=== PATIENT | female | born 1995 | race Hispanic/Latino ===

== ENCOUNTER 2017-11-25 17:45 | Emergency (ER) | payer OTHER ==
[2017-11-25 18:21] LABS: APPEARANCE,URINE Clear (CLEAR); BILIRUBIN,URINE Negative (NEGATIVE); COLOR,URINE Yellow (YELLOW); GLUCOSE, URINE (UA) Negative (NEGATIVE); KETONES,URINE Negative (NEGATIVE); LEUKOCYTE ESTERASE ,URINE Moderate (NEGATIVE); NITRATE,URINE Negative (NEGATIVE); OCCULT BLOOD,URINE Negative (NEGATIVE); PH,URINE 7.5 (5.0-8.0); PROTEIN,URINE Negative (NEGATIVE)
[2017-11-25 18:26] LABS: HCG,QUAL RESULT NEGATIVE (NEGATIVE)
[2017-11-25 18:28] LABS: BACTERIA,URINE Few /HPF (None Seen); MUCUS,URINE Few LPF (None Seen); RBC,URINE 0-1 /HPF (0-1); SQUAMOUS EPITHELIAL CELL,UR Few /HPF (0-2)
[2017-11-25] MEDS ORDERED: ORPHENADRINE CITRATE 30 MG/ML ML ONE (18:29)
[2017-11-25] MEDS ORDERED: DEXAMETHASONE SOD PHOSPHATE 10MG/ML 1ML VIAL ONE (18:29)
== END 2017-11-25 19:21 | disposition home or self-care (01) ==
LOC: EDH 17:45
DX: M54.42 Lumbago with sciatica, left side (principal); M54.41 Lumbago with sciatica, right side
CPT/HCPCS: 72100; 81001; 81025; 96372 ×2; 99285; J1100; J2360

== ENCOUNTER 2020-03-06 08:27 | Emergency (ER) | payer MEDICAID ==
[2020-03-06 09:45] LABS: BASOPHILS % (AUTO) 0.4 % (0.0-5.0); EOSINOPHILS % (AUTO) 1.5 % (0.0-8.0); HEMATOCRIT 37.1 % (36-48); LYMPHOCYTES % (AUTO) 18.7 % (21.0-51.0); MEAN CORPUSCULAR HEMOGLOBIN 25.8 pg (27.0-33.0); MEAN CORPUSCULAR HGB CONC 32.1 g/dL (32.0-36.0); MEAN CORPUSCULAR VOLUME 80.5 fL (79-99); MONOCYTES % (AUTO) 6.7 % (3.0-13.0); NEUTROPHILS % (AUTO) 72.1 % (40.0-77.0); PLATELET COUNT (AUTO) 450 K/uL (130-400); RED BLOOD CELL COUNT(AUTO) 4.61 MIL/uL (4.00-5.50); RED CELL DISTRIBUTION WIDTH 14.7 % (11.0-15.5); WHITE BLOOD COUNT (AUTO) 11.8 K/uL (4.8-10.8)
[2020-03-06 09:53] LABS: CREATININE 0.5 mg/dL (0.5-1.5); POTASSIUM 3.8 mmol/L (3.5-5.1)
[2020-03-06 09:53] LABS: APPEARANCE,URINE Clear (CLEAR); BILIRUBIN,URINE Negative (NEGATIVE); COLOR,URINE Yellow (YELLOW); GLUCOSE, URINE (UA) Negative (NEGATIVE); KETONES,URINE Negative (NEGATIVE); LEUKOCYTE ESTERASE ,URINE Small (NEGATIVE); NITRATE,URINE Negative (NEGATIVE); OCCULT BLOOD,URINE Large (NEGATIVE); PROTEIN,URINE Negative (NEGATIVE)
[2020-03-06 10:12] LABS: BACTERIA,URINE Rare /HPF (None Seen); RBC,URINE 0-1 /HPF (0-1); SQUAMOUS EPITHELIAL CELL,UR Moderate /HPF (0-2); WBC,URINE 0-1 /HPF (0-1)
== END 2020-03-06 11:49 | disposition home or self-care (01) ==
LOC: EDH 08:27
DX: O20.0 Threatened abortion (principal); O23.91 Unspecified genitourinary tract infection in pregnancy, first trimester; Z3A.08 8 weeks gestation of pregnancy
CPT/HCPCS: 36415; 76817; 80048; 81001; 84702; 85025; 86850; 86900; 86901

== ENCOUNTER 2021-02-15 12:56 | Emergency (ER) | payer MEDICAID ==
[~2021-02-15] VITALS: Ht 154.9 cm; Wt 73.9 kg
[2021-02-15 13:23] LABS: BASOPHILS % (AUTO) 0.4 % (0.0-5.0); EOSINOPHILS % (AUTO) 2.4 % (0.0-8.0); HEMATOCRIT 33.4 % (36-48); LYMPHOCYTES % (AUTO) 21.5 % (21.0-51.0); MEAN CORPUSCULAR HEMOGLOBIN 18.5 pg (27.0-33.0); MEAN CORPUSCULAR HGB CONC 27.8 g/dL (32.0-36.0); MEAN CORPUSCULAR VOLUME 66.3 fL (79-99); MONOCYTES % (AUTO) 6.3 % (3.0-13.0); NEUTROPHILS % (AUTO) 69.1 % (40.0-77.0); PLATELET COUNT (AUTO) 558 K/uL (130-400); RED BLOOD CELL COUNT(AUTO) 5.04 MIL/uL (4.00-5.50); RED CELL DISTRIBUTION WIDTH 17.7 % (11.0-15.5); WHITE BLOOD COUNT (AUTO) 9.5 K/uL (4.8-10.8)
[2021-02-15 13:36] LABS: CREATININE 0.5 mg/dL (0.5-1.5); POTASSIUM 4.1 mmol/L (3.5-5.1)
[2021-02-15 13:40] LABS: ALBUMIN 4.3 g/dL (3.5-5.0); BILIRUBIN,TOTAL 0.2 mg/dL (0.2-1.0); TOTAL PROTEIN, SERUM 8.5 g/dL (6.0-8.3)
[2021-02-15 15:32] LABS: BILIRUBIN,URINE Negative (NEGATIVE); COLOR,URINE Yellow (YELLOW); GLUCOSE, URINE (UA) Negative (NEGATIVE); KETONES,URINE Negative (NEGATIVE); LEUKOCYTE ESTERASE ,URINE Negative (NEGATIVE); NITRATE,URINE Negative (NEGATIVE); OCCULT BLOOD,URINE Negative (NEGATIVE); PROTEIN,URINE Negative (NEGATIVE); UROBILINOGEN,URINE 0.2 mg/dL (0.2-1.0)
[2021-02-15 15:35] LABS: HCG,QUAL RESULT NEGATIVE (NEGATIVE)
[2021-02-15 15:37] LABS: APPEARANCE,URINE CLEAR (CLEAR)
[2021-02-15 15:49] LABS: BACTERIA,URINE Few /HPF (None Seen); RBC,URINE 0-1 /HPF (0-1); SQUAMOUS EPITHELIAL CELL,UR 0-2 /HPF (0-2); WBC,URINE 0-1 /HPF (0-1)
[2021-02-15 16:00] VITALS: BP 124/78
[2021-02-15] MEDS ORDERED: DICL35CA3 PO (16:06)
[2021-02-15] MEDS ORDERED: KETOROLAC 60 MG VIAL (30MG/ML) ONE (16:15)
[2021-02-15] MEDS ORDERED: KETOROLAC 60 MG VIAL (30MG/ML) IM ONE (16:30)
== END 2021-02-15 16:22 | disposition home or self-care (01) ==
LOC: EDH 12:56
DX: N94.6 Dysmenorrhea, unspecified (principal); F17.200 Nicotine dependence, unspecified, uncomplicated
CPT/HCPCS: 36415; 80053; 81001; 81025; 85025; 99283; J1885; 81003

== ENCOUNTER 2021-06-27 13:01 | Emergency (ER) | payer MEDICAID, OTHER ==
[~2021-06-27] VITALS: Ht 154.9 cm; Wt 77.1 kg
[~2021-06-27 13:01] MED LIST: DICL35CA3 PO
[2021-06-27 13:02] VITALS: BP 128/71
[2021-06-27 13:23] LABS: BASOPHILS % (AUTO) 0.2 % (0.0-5.0); EOSINOPHILS % (AUTO) 2.1 % (0.0-8.0); HEMATOCRIT 35.9 % (36-48); LYMPHOCYTES % (AUTO) 10.3 % (21.0-51.0); MEAN CORPUSCULAR HEMOGLOBIN 20.4 pg (27.0-33.0); MEAN CORPUSCULAR HGB CONC 30.4 g/dL (32.0-36.0); MEAN CORPUSCULAR VOLUME 67.2 fL (79-99); MONOCYTES % (AUTO) 6.5 % (3.0-13.0); NEUTROPHILS % (AUTO) 80.5 % (40.0-77.0); PLATELET COUNT (AUTO) 430 K/uL (130-400); RED BLOOD CELL COUNT(AUTO) 5.34 MIL/uL (4.00-5.50); RED CELL DISTRIBUTION WIDTH 18.4 % (11.0-15.5); WHITE BLOOD COUNT (AUTO) 9.1 K/uL (4.8-10.8)
[2021-06-27] MEDS ORDERED: ONDANSETRON 4MG INJ IVP ONE (13:30)
[2021-06-27 13:33] LABS: CARBON DIOXIDE 24 mmol/L (21-32); CHLORIDE 101 mmol/L (101-111); CREATININE 0.5 mg/dL (0.5-1.5); GLOMERULAR FILTR. RATE CALC 161 mL/min (>60); GLUCOSE,RANDOM 92 mg/dL (70-105); POTASSIUM 3.5 mmol/L (3.5-5.1); SODIUM SERUM 134 mmol/L (136-145); UREA NITROGEN, BLOOD 7 mg/dL (7-18)
[2021-06-27 13:37] LABS: ALANINE AMINOTRANSFERASE 19 U/L (12-78); ALBUMIN 3.9 g/dL (3.5-5.0); ASPARTATE AMINOTRANSFERASE 14 U/L (10-37); BILIRUBIN,TOTAL 0.5 mg/dL (0.2-1.0); TOTAL PROTEIN, SERUM 8.2 g/dL (6.0-8.3)
[2021-06-27 13:39] LABS: LIPASE < 50 U/L (114-286)
[2021-06-27 13:42] LABS: APPEARANCE,URINE Cloudy (CLEAR); BILIRUBIN,URINE Negative (NEGATIVE); COLOR,URINE Dark Yellow (YELLOW); GLUCOSE, URINE (UA) Negative (NEGATIVE); KETONES,URINE Trace mg/dL (NEGATIVE); LEUKOCYTE ESTERASE ,URINE Small (NEGATIVE); NITRATE,URINE Negative (NEGATIVE); OCCULT BLOOD,URINE Negative (NEGATIVE); PROTEIN,URINE Trace mg/dL (NEGATIVE)
[2021-06-27 13:49] LABS: AMPHET/METH SCREEN,URINE NEGATIVE (NEGATIVE); BARBITURATE SCREEN, URINE NEGATIVE (NEGATIVE); BENZODIAZEPINES SCREEN,URINE NEGATIVE (NEGATIVE); CANNABINOID SCREEN,URINE POSITIVE (NEGATIVE); COCAINE SCREEN,URINE NEGATIVE (NEGATIVE); OPIATE SCREEN,URINE NEGATIVE (NEGATIVE); PHENCYCLIDINE SCREEN,URINE NEGATIVE (NEGATIVE)
[2021-06-27 13:52] LABS: BACTERIA,URINE Rare /HPF (None Seen); MUCUS,URINE Few LPF (None Seen); RBC,URINE 0-1 /HPF (0-1); SQUAMOUS EPITHELIAL CELL,UR Rare /HPF (0-2); WBC,URINE 0-1 /HPF (0-1)
[2021-06-27] MEDS ORDERED: IBUP-2070 PO (15:18)
== END 2021-06-27 15:46 | disposition home or self-care (01) ==
LOC: EDH 13:01
DX: N83.201 Unspecified ovarian cyst, right side (principal); D64.9 Anemia, unspecified; F17.200 Nicotine dependence, unspecified, uncomplicated; Z79.899 Other long term (current) drug therapy
CPT/HCPCS: 36415; 74176; 80053; 80305; 81001; 81025; 83690; 85025; 96374; 99284; J2405

== ENCOUNTER 2021-08-02 21:49 | Emergency (ER) | payer MEDICAID ==
[~2021-08-02] VITALS: Ht 152.4 cm; Wt 79.4 kg
[~2021-08-02 21:49] MED LIST changes: +IBUP-2070 PO
[2021-08-02] MEDS ORDERED: IBUP-2071 PO (22:55)
[2021-08-02] MEDS ORDERED: ACET-2247 PO (22:55)
[2021-08-02] MEDS ORDERED: AMOX1TAB16 PO (22:55)
[2021-08-02 22:58] VITALS: BP 129/80
[2021-08-02] MEDS ORDERED: ACETAMINOPHEN WITH CODEINE 1 TAB TAB PO ONE (23:00)
[2021-08-02] MEDS ORDERED: LIDOCAINE HCL 2% VISCOUS 15 ML UDCUP PO ONE (23:00)
[2021-08-02] MEDS ORDERED: MAG/ALUM/SIMETH 30 ML UDCUP PO ONE (23:00)
[2021-08-02] MEDS ORDERED: CEFTRIAXONE 1G VIAL IVP ONE (23:00)
[2021-08-02] MEDS ORDERED: DICYCLOMINE HCL 10 MG/5 ML ML PO ONE (23:00)
== END 2021-08-02 23:17 | disposition home or self-care (01) ==
LOC: EDH 21:49
DX: J02.9 Acute pharyngitis, unspecified (principal); F17.200 Nicotine dependence, unspecified, uncomplicated; Z79.1 Long term (current) use of non-steroidal anti-inflammatories (NSAID)
CPT/HCPCS: 96374; 99283; J0696

== ENCOUNTER → 2022-01-04 | Outpatient (CLI) | payer MEDICAID ==
[~2022-01-04] MED LIST changes: +ACET-2247 PO; +AMOX1TAB16 PO; +IBUP-2071 PO
== END | disposition home or self-care (01) ==
LOC: RAH 09:32
PROVIDERS: ATTEND Obstetrics & Gynecology
DX: K76.0 Fatty (change of) liver, not elsewhere classified (principal); R10.13 Epigastric pain
CPT/HCPCS: 76705

== ENCOUNTER 2022-02-20 14:30 | Observation (INO) | payer MEDICAID ==
[~2022-02-20] VITALS: Ht 154.9 cm; Wt 79.4 kg
[2022-02-20 14:49] VITALS: BP 133/84
[2022-02-20 16:03] LABS: APPEARANCE,URINE CLOUDY (CLEAR); BILIRUBIN,URINE NEGATIVE (NEGATIVE); COLOR,URINE LIGHT-YELLOW (YELLOW); GLUCOSE, URINE (UA) 50 mg/dL (NEGATIVE); KETONES,URINE NEGATIVE (NEGATIVE); LEUKOCYTE ESTERASE ,URINE 500 Leu/uL (NEGATIVE); NITRATE,URINE NEGATIVE (NEGATIVE); OCCULT BLOOD,URINE NEGATIVE (NEGATIVE); PROTEIN,URINE NEGATIVE (NEGATIVE); UROBILINOGEN,URINE 0.2 mg/dL (0.2-1.0)
[2022-02-20 16:07] LABS: BACTERIA,URINE RARE /HPF (None Seen); MUCUS,URINE RARE LPF (None Seen); SQUAMOUS EPITHELIAL CELL,UR MOD /HPF (0-2)
[2022-02-20 16:26] LABS: AMPHET/METH SCREEN,URINE NEGATIVE (NEGATIVE); BARBITURATE SCREEN, URINE NEGATIVE (NEGATIVE); BENZODIAZEPINES SCREEN,URINE NEGATIVE (NEGATIVE); CANNABINOID SCREEN,URINE NEGATIVE (NEGATIVE); COCAINE SCREEN,URINE NEGATIVE (NEGATIVE); OPIATE SCREEN,URINE NEGATIVE (NEGATIVE); PHENCYCLIDINE SCREEN,URINE NEGATIVE (NEGATIVE)
== END 2022-02-20 16:39 | disposition home or self-care (01) ==
LOC: EDH 14:30 → LDH 14:59
PROVIDERS: ADMIT Obstetrics & Gynecology; ATTEND Obstetrics & Gynecology
DX: O26.892 Other specified pregnancy related conditions, second trimester (principal); R10.9 Unspecified abdominal pain; Z3A.23 23 weeks gestation of pregnancy
CPT/HCPCS: 80305; 87088; 81001; G0378 ×2; G0379

== ENCOUNTER 2022-03-16 08:17 | Observation (INO) | payer MEDICAID ==
[~2022-03-16] VITALS: Ht 154.9 cm; Wt 81.2 kg
[2022-03-16 09:21] LABS: APPEARANCE,URINE CLOUDY (CLEAR); BILIRUBIN,URINE NEGATIVE (NEGATIVE); COLOR,URINE LIGHT-ORANGE (YELLOW); GLUCOSE, URINE (UA) NEGATIVE (NEGATIVE); KETONES,URINE NEGATIVE (NEGATIVE); LEUKOCYTE ESTERASE ,URINE 500 Leu/uL (NEGATIVE); NITRATE,URINE NEGATIVE (NEGATIVE); PH,URINE 6.5 (5.0-8.0); PROTEIN,URINE 30 mg/dL (NEGATIVE); UROBILINOGEN,URINE 0.2 mg/dL (0.2-1.0)
[2022-03-16] MEDS ORDERED: FLUCONAZOLE 100 MG TAB PO SCH (09:30)
[2022-03-16 09:52] LABS: BACTERIA,URINE MOD /HPF (None Seen); MUCUS,URINE RARE LPF (None Seen); RBC,URINE 26-50 /HPF (0-1); SQUAMOUS EPITHELIAL CELL,UR MANY /HPF (0-2); WBC,URINE 51-100 /HPF (0-1)
[2022-03-16 09:56] VITALS: BP 114/59
[2022-03-16 13:20] LABS: AMPHET/METH SCREEN,URINE NEGATIVE (NEGATIVE); BARBITURATE SCREEN, URINE NEGATIVE (NEGATIVE); BENZODIAZEPINES SCREEN,URINE NEGATIVE (NEGATIVE); CANNABINOID SCREEN,URINE NEGATIVE (NEGATIVE); COCAINE SCREEN,URINE NEGATIVE (NEGATIVE); OPIATE SCREEN,URINE NEGATIVE (NEGATIVE); PHENCYCLIDINE SCREEN,URINE NEGATIVE (NEGATIVE)
== END 2022-03-16 10:45 | disposition home or self-care (01) ==
LOC: EDH 08:17 → LDH 08:18
PROVIDERS: ADMIT Obstetrics & Gynecology; ATTEND Obstetrics & Gynecology
DX: O34.60 Maternal care for abnormality of vagina, unspecified trimester (principal); N89.8 Other specified noninflammatory disorders of vagina; Z3A.00 Weeks of gestation of pregnancy not specified
CPT/HCPCS: 80305; 87088; 81001; G0378 ×2; G0379

== ENCOUNTER 2022-03-21 15:55 | Observation (INO) | payer MEDICAID ==
[~2022-03-21] VITALS: Ht 154.9 cm; Wt 79.4 kg
[2022-03-21 18:03] LABS: HEMATOCRIT 29.5 % (36-48); MEAN CORPUSCULAR HEMOGLOBIN 20.1 pg (27.0-33.0); MEAN CORPUSCULAR HGB CONC 29.2 g/dL (32.0-36.0); MEAN CORPUSCULAR VOLUME 69.1 fL (79-99); PLATELET COUNT (AUTO) 434 K/uL (130-400); RED BLOOD CELL COUNT(AUTO) 4.27 MIL/uL (4.00-5.50); RED CELL DISTRIBUTION WIDTH 17.1 % (11.0-15.5); WHITE BLOOD COUNT (AUTO) 12.9 K/uL (4.8-10.8)
[2022-03-21 18:08] VITALS: BP 122/74
[2022-03-21 18:16] LABS: BASOPHILS % (AUTO) 0.2 % (0.0-5.0); EOSINOPHILS % (AUTO) 2.1 % (0.0-8.0); LYMPHOCYTES % (AUTO) 12.7 % (21.0-51.0); MONOCYTES % (AUTO) 7.5 % (3.0-13.0)
[2022-03-21 18:24] LABS: ALBUMIN 2.7 g/dL (3.5-5.0); CREATININE 0.4 mg/dL (0.5-1.5); POTASSIUM 3.4 mmol/L (3.5-5.1); TOTAL PROTEIN, SERUM 7.2 g/dL (6.0-8.3)
[2022-03-21 19:05] LABS: APPEARANCE,URINE CLOUDY (CLEAR); BILIRUBIN,URINE NEGATIVE (NEGATIVE); COLOR,URINE YELLOW (YELLOW); GLUCOSE, URINE (UA) 300 mg/dL (NEGATIVE); KETONES,URINE 5 mg/dL (NEGATIVE); LEUKOCYTE ESTERASE ,URINE 250 Leu/uL (NEGATIVE); NITRATE,URINE NEGATIVE (NEGATIVE); OCCULT BLOOD,URINE NEGATIVE (NEGATIVE); PROTEIN,URINE 30 mg/dL (NEGATIVE); UROBILINOGEN,URINE 0.2 mg/dL (0.2-1.0)
[2022-03-21 19:11] LABS: AMPHET/METH SCREEN,URINE NEGATIVE (NEGATIVE); BARBITURATE SCREEN, URINE NEGATIVE (NEGATIVE); BENZODIAZEPINES SCREEN,URINE NEGATIVE (NEGATIVE); CANNABINOID SCREEN,URINE NEGATIVE (NEGATIVE); COCAINE SCREEN,URINE NEGATIVE (NEGATIVE); OPIATE SCREEN,URINE NEGATIVE (NEGATIVE); PHENCYCLIDINE SCREEN,URINE NEGATIVE (NEGATIVE)
[2022-03-21 19:56] LABS: BACTERIA,URINE FEW /HPF (None Seen); MUCUS,URINE RARE LPF (None Seen); OTHER CASTS, URINE 1 /LPF (None Seen); SQUAMOUS EPITHELIAL CELL,UR MOD /HPF (0-2)
== END 2022-03-21 19:10 | disposition home or self-care (01) ==
LOC: EDH 15:55 → LDH 15:56
PROVIDERS: ADMIT Obstetrics & Gynecology; ATTEND Obstetrics & Gynecology
DX: O99.612 Diseases of the digestive system complicating pregnancy, second trimester (principal); K62.5 Hemorrhage of anus and rectum; O99.322 Drug use complicating pregnancy, second trimester; F12.90 Cannabis use, unspecified, uncomplicated; Z3A.27 27 weeks gestation of pregnancy; Z87.891 Personal history of nicotine dependence
CPT/HCPCS: 99284; 80053; 80305; 85025; 86850; 86900; 86901; 87088; 36415; 81001; G0378

== ENCOUNTER 2022-04-23 14:04 | Observation (INO) | payer MEDICAID ==
[~2022-04-23] VITALS: Ht 154.9 cm; Wt 84.8 kg
[2022-04-23 14:47] LABS: APPEARANCE,URINE CLOUDY (CLEAR); BILIRUBIN,URINE NEGATIVE (NEGATIVE); COLOR,URINE YELLOW (YELLOW); GLUCOSE, URINE (UA) >=1000 mg/dL (NEGATIVE); KETONES,URINE 40 mg/dL (NEGATIVE); LEUKOCYTE ESTERASE ,URINE 500 Leu/uL (NEGATIVE); NITRATE,URINE NEGATIVE (NEGATIVE); OCCULT BLOOD,URINE NEGATIVE (NEGATIVE); PROTEIN,URINE 50 mg/dL (NEGATIVE); UROBILINOGEN,URINE 0.2 mg/dL (0.2-1.0)
[2022-04-23 14:50] LABS: AMPHET/METH SCREEN,URINE NEGATIVE (NEGATIVE); BARBITURATE SCREEN, URINE NEGATIVE (NEGATIVE); BENZODIAZEPINES SCREEN,URINE NEGATIVE (NEGATIVE); CANNABINOID SCREEN,URINE NEGATIVE (NEGATIVE); COCAINE SCREEN,URINE NEGATIVE (NEGATIVE); OPIATE SCREEN,URINE NEGATIVE (NEGATIVE); PHENCYCLIDINE SCREEN,URINE NEGATIVE (NEGATIVE)
[2022-04-23 14:54] LABS: BACTERIA,URINE FEW /HPF (None Seen); MUCUS,URINE MANY LPF (None Seen); SQUAMOUS EPITHELIAL CELL,UR MOD /HPF (0-2); WBC,URINE 26-50 /HPF (0-1)
[2022-04-23] MEDS ORDERED: LACTATED RINGERS 1000ML 1,000 ML IV PRN (15:00)
[2022-04-23] MEDS ORDERED: ACETAMINOPHEN 500 MG TABLET PO PRN (15:30)
[2022-04-23 15:32] LABS: BASOPHILS % (AUTO) 0.2 % (0.0-5.0); EOSINOPHILS % (AUTO) 1.2 % (0.0-8.0); HEMATOCRIT 25.6 % (36-48); LYMPHOCYTES % (AUTO) 8.6 % (21.0-51.0); MEAN CORPUSCULAR HEMOGLOBIN 18.8 pg (27.0-33.0); MEAN CORPUSCULAR HGB CONC 28.5 g/dL (32.0-36.0); MONOCYTES % (AUTO) 7.3 % (3.0-13.0); NEUTROPHILS % (AUTO) 78.5 % (40.0-77.0); NUCLEATED RED BLOOD CELLS 0.5 % (0.0-0.19); PLATELET COUNT (AUTO) 416 K/uL (130-400); RED BLOOD CELL COUNT(AUTO) 3.88 MIL/uL (4.00-5.50); RED CELL DISTRIBUTION WIDTH 18.1 % (11.0-15.5); WHITE BLOOD COUNT (AUTO) 13.9 K/uL (4.8-10.8)
[2022-04-23] MEDS: MEPERIDINE-PF 50 MG/ML SYG IVP PRN ×2 (15:38→21:04)
[2022-04-23] MEDS: PROMETHAZINE HCL 25 MG/ML 1ML AMPULE IM PRN ×2 (15:39→21:04)
[2022-04-23] MEDS: CEFTRIAXONE 1G VIAL IVP SCH (15:39)
[2022-04-23] MEDS: LACTATED RINGERS 1000ML 1,000 ML IV SCH ×2 (15:40→19:03)
[2022-04-23 15:44] LABS: CREATININE 0.5 mg/dL (0.5-1.5)
[2022-04-23 15:48] LABS: ALBUMIN 2.4 g/dL (3.5-5.0); TOTAL PROTEIN, SERUM 6.8 g/dL (6.0-8.3)
[2022-04-23] MEDS ORDERED: LIDOCAINE HCL-MPF 1% 2ML VIAL IV PRN (16:30)
[2022-04-23] MEDS ORDERED: POTASSIUM CHLORIDE 20MEQ/100ML 100 ML IV PRN (16:30)
[2022-04-23 17:15] VITALS: BP 120/74
[2022-04-23] MEDS: KCL 20 MEQ ERTAB PO PRN (18:57)
[2022-04-23 19:28] VITALS: BP 132/80
[2022-04-23] MEDS ORDERED: MV-M1TAB66 PO (20:15)
[2022-04-23 23:19] VITALS: BP 116/68
[2022-04-24] MEDS: KCL 20 MEQ ERTAB PO PRN ×2 (00:08→01:42)
[2022-04-24] MEDS: LACTATED RINGERS 1000ML 1,000 ML IV SCH ×2 (01:41→07:58)
[2022-04-24 03:21] VITALS: BP 102/63
[2022-04-24 06:35] LABS: HEMATOCRIT 24.9 % (36-48); MEAN CORPUSCULAR HEMOGLOBIN 18.9 pg (27.0-33.0); MEAN CORPUSCULAR HGB CONC 27.7 g/dL (32.0-36.0); MEAN CORPUSCULAR VOLUME 68.2 fL (79-99); NUCLEATED RED BLOOD CELLS 0.4 % (0.0-0.19); RED BLOOD CELL COUNT(AUTO) 3.65 MIL/uL (4.00-5.50); RED CELL DISTRIBUTION WIDTH 18.1 % (11.0-15.5); WHITE BLOOD COUNT (AUTO) 12.5 K/uL (4.8-10.8)
[2022-04-24 07:30] VITALS: BP 97/56
[2022-04-24] MEDS ORDERED: PRENATAL VITAMIN RX TABLET PO SCH (09:00)
[2022-04-24 11:58] VITALS: BP 115/62
[2022-04-24 14:45] LABS: HEMATOCRIT 28.3 % (36-48); MEAN CORPUSCULAR HEMOGLOBIN 20.1 pg (27.0-33.0); MEAN CORPUSCULAR VOLUME 69.5 fL (79-99); NUCLEATED RED BLOOD CELLS 0.5 % (0.0-0.19); RED BLOOD CELL COUNT(AUTO) 4.07 MIL/uL (4.00-5.50); RED CELL DISTRIBUTION WIDTH 20.4 % (11.0-15.5); WHITE BLOOD COUNT (AUTO) 12.9 K/uL (4.8-10.8)
[2022-04-24] MEDS: CEFTRIAXONE 1G VIAL IVP SCH (15:30)
== END 2022-04-24 15:45 | disposition home or self-care (01) ==
LOC: LDH 14:04 → WSH 17:07
PROVIDERS: ADMIT Obstetrics & Gynecology; ATTEND Obstetrics & Gynecology
DX: O23.03 Infections of kidney in pregnancy, third trimester (principal); O99.323 Drug use complicating pregnancy, third trimester; F12.90 Cannabis use, unspecified, uncomplicated; Z3A.32 32 weeks gestation of pregnancy; Z87.891 Personal history of nicotine dependence
CPT/HCPCS: 96374; 96376; 96361 ×2; 96375; 59025; 36415 ×3; 80053; 80305; 85025; 87088; 81001; 36430; 84132; 85027 ×2; 86850; 86900; 86901; 86923; G0378 ×26; G0379; J2550 ×2; J0696; J2175 ×2; J7120; P9016; 96360

== ENCOUNTER 2022-05-16 22:31 | Observation (INO) | payer MEDICAID ==
[~2022-05-16] VITALS: Ht 154.9 cm; Wt 83.5 kg
[~2022-05-16 22:31] MED LIST changes: -ACET-2247 PO; -AMOX1TAB16 PO; -DICL35CA3 PO; -IBUP-2070 PO; -IBUP-2071 PO; +MV-M1TAB66 PO
[2022-05-16] MEDS ORDERED: LACTATED RINGERS 1000ML IV PRN (23:00)
[2022-05-16 23:07] LABS: APPEARANCE,URINE CLOUDY (CLEAR); BILIRUBIN,URINE NEGATIVE (NEGATIVE); COLOR,URINE LIGHT-YELLOW (YELLOW); GLUCOSE, URINE (UA) NEGATIVE (NEGATIVE); KETONES,URINE NEGATIVE (NEGATIVE); LEUKOCYTE ESTERASE ,URINE 500 Leu/uL (NEGATIVE); NITRATE,URINE NEGATIVE (NEGATIVE); OCCULT BLOOD,URINE NEGATIVE (NEGATIVE); PH,URINE 7.5 (5.0-8.0); PROTEIN,URINE NEGATIVE (NEGATIVE); UROBILINOGEN,URINE 0.2 mg/dL (0.2-1.0)
[2022-05-16 23:13] LABS: MUCUS,URINE RARE LPF (None Seen); RBC,URINE 0-1 /HPF (0-1); SQUAMOUS EPITHELIAL CELL,UR MANY /HPF (0-2)
[2022-05-16 23:17] LABS: AMPHET/METH SCREEN,URINE NEGATIVE (NEGATIVE); BARBITURATE SCREEN, URINE NEGATIVE (NEGATIVE); BENZODIAZEPINES SCREEN,URINE NEGATIVE (NEGATIVE); CANNABINOID SCREEN,URINE NEGATIVE (NEGATIVE); COCAINE SCREEN,URINE NEGATIVE (NEGATIVE); OPIATE SCREEN,URINE NEGATIVE (NEGATIVE); PHENCYCLIDINE SCREEN,URINE NEGATIVE (NEGATIVE)
[2022-05-16 23:19] LABS: BACTERIA,URINE Few /HPF (None Seen)
[2022-05-16] MEDS ORDERED: BUTORPHANOL TARTRATE 2 MG/ML IVP ONE (23:45)
[2022-05-16 23:47] VITALS: BP 120/70
== END 2022-05-17 01:45 | disposition home or self-care (01) ==
LOC: EDH 22:31 → LDH 22:32
PROVIDERS: ADMIT Obstetrics & Gynecology; ATTEND Obstetrics & Gynecology
DX: O62.9 Abnormality of forces of labor, unspecified (principal); O99.323 Drug use complicating pregnancy, third trimester; F12.90 Cannabis use, unspecified, uncomplicated; Z3A.35 35 weeks gestation of pregnancy; Z87.891 Personal history of nicotine dependence
CPT/HCPCS: 80305; 87088; 81001; 96374; 96361; G0378 ×3; G0379; J7120; J0595; 96360

== ENCOUNTER 2022-05-22 21:47 | Observation (INO) | payer MEDICAID ==
[~2022-05-22] VITALS: Ht 154.9 cm; Wt 82.6 kg
[2022-05-22] MEDS ORDERED: LACTATED RINGERS 1000ML 1,000 ML IV SCH (23:00)
[2022-05-22 23:03] LABS: APPEARANCE,URINE CLOUDY (CLEAR); BILIRUBIN,URINE NEGATIVE (NEGATIVE); COLOR,URINE LIGHT-YELLOW (YELLOW); GLUCOSE, URINE (UA) 50 mg/dL (NEGATIVE); KETONES,URINE NEGATIVE (NEGATIVE); LEUKOCYTE ESTERASE ,URINE 75 Leu/uL (NEGATIVE); NITRATE,URINE NEGATIVE (NEGATIVE); OCCULT BLOOD,URINE NEGATIVE (NEGATIVE); PROTEIN,URINE NEGATIVE (NEGATIVE); UROBILINOGEN,URINE 0.2 mg/dL (0.2-1.0)
[2022-05-22 23:14] LABS: MUCUS,URINE RARE LPF (None Seen); SQUAMOUS EPITHELIAL CELL,UR MANY /HPF (0-2)
[2022-05-22 23:16] VITALS: BP 120/75
[2022-05-22] MEDS ORDERED: MEPERIDINE-PF 50 MG/ML SYG IM ONE (23:30)
[2022-05-22] MEDS ORDERED: PROMETHAZINE HCL 25 MG/ML 1ML AMPULE IM ONE (23:30)
[2022-05-23] MEDS ORDERED: TRIAM15CRM TP (00:15)
[2022-05-23] MEDS ORDERED: LACTATED RINGERS 1000ML 1,000 ML IV SCH (00:30)
== END 2022-05-23 03:50 | disposition home or self-care (01) ==
LOC: EDH 21:47 → UNDOADMOB 21:48 → LDH 21:48
PROVIDERS: ADMIT Obstetrics & Gynecology; ATTEND Obstetrics & Gynecology
DX: O26.893 Other specified pregnancy related conditions, third trimester (principal); R10.32 Left lower quadrant pain; O62.9 Abnormality of forces of labor, unspecified; Z3A.36 36 weeks gestation of pregnancy
CPT/HCPCS: 96372; 96360; 59025; 87088; 81001; 96361 ×2; G0378 ×6; G0379; J7120; J2550; J2175

== ENCOUNTER 2022-06-02 16:39 | Observation (INO) | payer MEDICAID ==
[~2022-06-02] VITALS: Ht 154.9 cm; Wt 81.2 kg
[~2022-06-02 16:39] MED LIST changes: +TRIAM15CRM TP
[2022-06-02 17:49] LABS: APPEARANCE,URINE CLOUDY (CLEAR); BILIRUBIN,URINE NEGATIVE (NEGATIVE); COLOR,URINE YELLOW (YELLOW); GLUCOSE, URINE (UA) NEGATIVE (NEGATIVE); KETONES,URINE 150 mg/dL (NEGATIVE); LEUKOCYTE ESTERASE ,URINE 250 Leu/uL (NEGATIVE); NITRATE,URINE NEGATIVE (NEGATIVE); OCCULT BLOOD,URINE NEGATIVE (NEGATIVE); PROTEIN,URINE 50 mg/dL (NEGATIVE); UROBILINOGEN,URINE 0.2 mg/dL (0.2-1.0)
[2022-06-02 17:53] LABS: BACTERIA,URINE FEW /HPF (None Seen); MUCUS,URINE MOD LPF (None Seen); SQUAMOUS EPITHELIAL CELL,UR MANY /HPF (0-2)
[2022-06-02 17:54] VITALS: BP 125/81
== END 2022-06-02 18:08 | disposition home or self-care (01) ==
LOC: EDH 16:39 → LDH 16:40
PROVIDERS: ADMIT Obstetrics & Gynecology; ATTEND Obstetrics & Gynecology
DX: O26.893 Other specified pregnancy related conditions, third trimester (principal); R10.9 Unspecified abdominal pain; O99.323 Drug use complicating pregnancy, third trimester; F12.90 Cannabis use, unspecified, uncomplicated; Z3A.37 37 weeks gestation of pregnancy; Z87.891 Personal history of nicotine dependence
CPT/HCPCS: 87088; 81001; G0379; G0378

== ENCOUNTER 2023-10-05 15:18 | Emergency (ER) | payer BC, MEDICAID ==
[~2023-10-05] VITALS: Ht 152.4 cm; Wt 83.0 kg
[2023-10-05 15:20] VITALS: BP 130/87; PULSE 64; RESP 16
[2023-10-05] MEDS: ACETAMINOPHEN 500 MG TABLET PO ONE (15:51)
[2023-10-05] MEDS ORDERED: IBUP-2070 PO (19:10)
== END 2023-10-05 19:17 | disposition home or self-care (01) ==
LOC: EDH 15:18
DX: M79.672 Pain in left foot (principal); M79.671 Pain in right foot; F17.210 Nicotine dependence, cigarettes, uncomplicated; Z79.899 Other long term (current) drug therapy; Z98.890 Other specified postprocedural states
CPT/HCPCS: 73630; 81025

== ENCOUNTER 2023-11-21 08:49 | Emergency (ER) | payer BC ==
[~2023-11-21] VITALS: Ht 157.5 cm; Wt 70.3 kg
[~2023-11-21 08:49] MED LIST changes: +IBUP-2070 PO
[2023-11-21] MEDS: CYCLOBENZAPRINE HCL 10 MG TABLET PO ONE (10:22)
[2023-11-21] MEDS: ONDANSETRON ODT 4MG TAB SL ONE (10:22)
[2023-11-21] MEDS: OXYCODONE/ACETAMIN 5/325MG TAB PO ONE (10:22)
[2023-11-21 10:26] LABS: APPEARANCE,URINE CLEAR (CLEAR); BILIRUBIN,URINE NEGATIVE (NEGATIVE); COLOR,URINE YELLOW (YELLOW); GLUCOSE, URINE (UA) NEGATIVE (NEGATIVE); KETONES,URINE NEGATIVE (NEGATIVE); LEUKOCYTE ESTERASE ,URINE NEGATIVE Leu/uL (NEGATIVE); NITRATE,URINE NEGATIVE (NEGATIVE); OCCULT BLOOD,URINE NEGATIVE (NEGATIVE); PROTEIN,URINE 10 mg/dL (NEGATIVE); UROBILINOGEN,URINE 0.2 mg/dL (0.2-1.0)
[2023-11-21 10:33] LABS: ADD UA MICROSCOPIC NO
[2023-11-21 10:34] LABS: HCG,QUALITATIVE URINE NEGATIVE (NEGATIVE)
[2023-11-21 10:36] LABS: MUCUS,URINE RARE LPF (None Seen); RBC,URINE 0-1 /HPF (0-1); SQUAMOUS EPITHELIAL CELL,UR RARE /HPF (0-2)
[2023-11-21] MEDS: Solu-medROL 125MG VIAL IVP ONE (12:54)
[2023-11-21] MEDS: hydroMORPHone 1 MG INJ IVP ONE (13:42)
[2023-11-21 16:24] VITALS: BP 106/63; PULSE 79; RESP 16; TEMP 97.9; O2SAT 100
[2023-11-21] MEDS ORDERED: ACET-2079 PO (16:30)
[2023-11-21] MEDS ORDERED: PRED20TA3 PO (16:30)
== END 2023-11-21 16:53 | disposition home or self-care (01) ==
LOC: EDH 08:49
DX: L40.52 Psoriatic arthritis mutilans (principal); M54.50 Low back pain, unspecified; M54.2 Cervicalgia; M79.604 Pain in right leg; M79.601 Pain in right arm; M79.602 Pain in left arm
CPT/HCPCS: 99284; 96374; 93926; 81003; 81025; 72040; J2919